=== PATIENT | male | born 1975 | race Caucasian/White ===

== ENCOUNTER 2023-07-10 09:33 | Day surgery (SDC) | payer BC ==
[~2023-07-10 09:33] MED LIST: Lactated Ringers 1,000 ML IV SCH
[2023-07-10] MEDS ORDERED: propofoL 50 ML ONE (11:58)
== END 2023-07-10 13:25 | disposition home or self-care (01) ==
LOC: MW.SDS 09:33
PROVIDERS: ATTEND Surgery
DX: Z12.11 Encounter for screening for malignant neoplasm of colon (principal); D12.6 Benign neoplasm of colon, unspecified; K63.5 Polyp of colon; M77.32 Calcaneal spur, left foot; E78.00 Pure hypercholesterolemia, unspecified; M79.672 Pain in left foot; M70.51 Other bursitis of knee, right knee; R73.03 Prediabetes; F17.200 Nicotine dependence, unspecified, uncomplicated; Z79.899 Other long term (current) drug therapy
CPT/HCPCS: 45380; J2704; J7120; 00811